=== PATIENT | female | born 1975 | race Caucasian/White ===

== ENCOUNTER 2017-12-29 15:03 | Emergency (ER) | payer OTHER ==
[~2017-12-29] VITALS: Ht 171.4 cm; Wt 65.0 kg
[2017-12-29] MEDS ORDERED: IOHEXOL 350 MG/ML 10 ML VIAL (for RAD DIAG) IVCONTRAST ONE (15:04)
[2017-12-29 15:24] VITALS: BP 184/84; PULSE 68; RESP 18; TEMP 98.1; O2SAT 100
[2017-12-29] MEDS ORDERED: SODIUM CHLOR 0.9% 1000 ML INJ 1,000 ML IV ONE (16:04)
--- NOTE | 2017-12-29 16:09 | PD ---
HPI Chief Complaint: Headache Time Seen by Provider: 15:56 Travel History International Travel<30 days: No Contact w/Intl Traveler<30days: No Traveled to known affect area: No History of Present Illness HPI This is a 42-year-old female with no significant past medical history presents for evaluation of cephalgia. Symptoms started at 8:30 AM this morning when she was doing push-ups. Initially she reports that the pain was severe, frontal occipital headache which was sharp. Throughout the day the headache is gradually lessened in intensity and is currently a 5 out of 10 pain. She denies any stiff neck, nausea or vomiting, visual changes, photophobia, phonophobia, chest pain, shortness of breath, cough or congestion. She does not get frequent headaches. She has no other complaints at this time. PFSH Past Medical History ?: Not Social History Alcohol Use: Yes Tobacco Use: No Allergies-Medications (Allergen,Severity, Reaction): Coded Allergies: aspirin (Verified Allergy, Unknown, 12/29/17) azithromycin (Verified Allergy, Unknown, 12/29/17) cefaclor (Verified Allergy, Unknown, 12/29/17) ibuprofen (Verified Allergy, Unknown, 12/29/17) Review of Systems Except as stated in HPI: all other systems reviewed are Neg Physical Exam Narrative GENERAL: Well-developed well-nourished female no acute distress SKIN: Warm and dry. HEAD: Atraumatic. Normocephalic. EYES: Pupils equal and round. No scleral icterus. No injection or drainage. ENT: No nasal bleeding or discharge. Mucous membranes pink and moist. NECK: Trachea midline. No JVD. Neck supple full range of motion. No lymphadenopathy. CARDIOVASCULAR: Regular rate and rhythm. No murmur appreciated. RESPIRATORY: No accessory muscle use. Clear to auscultation. Breath sounds equal bilaterally. GASTROINTESTINAL: Abdomen soft, non-tender, nondistended. Hepatic and splenic margins not palpable. MUSCULOSKELETAL: No obvious deformities. Normal gait. NEUROLOGICAL: Awake and alert. No obvious cranial nerve deficits. Motor grossly within normal limits. Normal speech. Data Data Last Documented VS Vital Signs Date Time Temp Pulse Resp B/P (MAP) Pulse Ox O2 Delivery O2 Flow Rate FiO2 12/29/17 17:55 73 18 129/59 (82) 99 Room Air 12/29/17 15:24 98.1 Orders Orders Complete Blood Count With Diff (12/29/17 15:27) Basic Metabolic Panel (Bmp) (12/29/17 15:27) Act Partial Throm Time (Ptt) (12/29/17 15:27) Prothrombin Time / Inr (Pt) (12/29/17 15:27) Ct Brain W/O Iv Contrast(Rout) (12/29/17 ) Ed Urine Pregnancytest Poc (12/29/17 15:27) Cta Neck W Iv Contrast W 3d (12/29/17 ) Cta Brain W Iv Contrast W 3d (12/29/17 ) Acetaminophen (Tylenol) (12/29/17 16:15) Diphenhydramine Inj (Benadryl Inj) (12/29/17 16:15) Metoclopramide Inj (Reglan Inj) (12/29/17 16:15) Sodium Chlor 0.9% 1000 Ml Inj (Ns 1000 M (12/29/17 16:04) Iv Access Insert/Monitor (12/29/17 16:04) Iohexol 350 Inj (Omnipaque 350 Inj) (12/29/17 15:04) Labs Laboratory Tests Test 12/29/17 16:15 White Blood Count 8.6 TH/MM3 Red Blood Count 4.48 MIL/MM3 Hemoglobin 13.9 GM/DL Hematocrit 39.1 % Mean Corpuscular Volume 87.1 FL Mean Corpuscular Hemoglobin 31.1 PG Mean Corpuscular Hemoglobin Concent 35.7 % Red Cell Distribution Width 11.9 % Platelet Count 318 TH/MM3 Mean Platelet Volume 8.5 FL Neutrophils (%) (Auto) 54.3 % Lymphocytes (%) (Auto) 37.0 % Monocytes (%) (Auto) 7.4 % Eosinophils (%) (Auto) 0.8 % Basophils (%) (Auto) 0.5 % Neutrophils # (Auto) 4.6 TH/MM3 Lymphocytes # (Auto) 3.2 TH/MM3 Monocytes # (Auto) 0.6 TH/MM3 Eosinophils # (Auto) 0.1 TH/MM3 Basophils # (Auto) 0.0 TH/MM3 CBC Comment DIFF FINAL Differential Comment Prothrombin Time 10.3 SEC Prothromb Time International Ratio 1.0 RATIO Activated Partial Thromboplast Time 24.1 SEC Blood Urea Nitrogen 14 MG/DL Creatinine 0.92 MG/DL Random Glucose 86 MG/DL Calcium Level 9.8 MG/DL Sodium Level 141 MEQ/L Potassium Level 3.5 MEQ/L Chloride Level 105 MEQ/L Carbon Dioxide Level 25.1 MEQ/L Anion Gap 11 MEQ/L Estimat Glomerular Filtration Rate 67 ML/MIN MDM Medical Decision Making Medical Screen Exam Complete: Yes Emergency Medical Condition: Yes Medical Record Reviewed: Yes Differential Diagnosis Tension headache, subarachnoid hemorrhage, intracranial mass, migraine Narrative Course 42-year-old female presents with a frontal/occipital headache which started this morning at 8 AM when she was doing push-ups. She has no focal neurologic deficits and physical examination is reassuring. Initially the headache was quite severe but is now spontaneously lessened. Given the clinical history, CT the brain as well as CTA of the head and neck of been ordered to rule out aneurysm or subarachnoid hemorrhage. The patient was given IV fluids, Reglan, Benadryl. Lab work has been reviewed and found to be unremarkable. CTA of the brain, neck , as well as CT of the brain have been reviewed and found to be unremarkable, no evidence of subarachnoid hemorrhage or aneurysm. Upon reexamination her headache has improved after administration of Reglan and Benadryl and fluids. Diagnosis Primary Impression: Cephalgia Additional Instructions: Follow-up with primary care physician. Return for any acutely new or worsening symptoms. Med/Other Pt SpecificInfo: No Change to Meds Disposition: 01 DISCHARGE HOME Condition: Stable Kye Ng Dec 29, 2017 16:08
[2017-12-29] MEDS ORDERED: ACETAMINOPHEN 325 MG TAB PO ONE (16:15)
[2017-12-29] MEDS ORDERED: METOCLOPRAMIDE HCL 10 MG/2 ML VIAL IVP ONE (16:15)
[2017-12-29] MEDS ORDERED: diphenhydrAMINE HCL 50 MG/ML VIAL IVP ONE (16:15)
[2017-12-29 16:49] LABS: AUTOMATED NEUTROPHIL # 4.6 TH/MM3 (1.8-7.7); BASOPHIL % 0.5 % (0.0-2.0); EOSINOPHIL # 0.1 TH/MM3 (0-0.4); EOSINOPHIL % 0.8 % (0.0-4.0); HEMATOCRIT 39.1 % (35.0-46.0); HEMOGLOBIN 13.9 GM/DL (11.6-15.3); LYMPHOCYTE # 3.2 TH/MM3 (1.0-4.8); MEAN CELL VOLUME 87.1 FL (80.0-100.0); MEAN CORPUSCULAR HEMOGLOBIN 31.1 PG (27.0-34.0); MEAN CORPUSCULAR HGB CONC 35.7 % (32.0-36.0); MEAN PLATELET VOLUME 8.5 FL (7.0-11.0); MONO % 7.4 % (0.0-8.0); MONOCYTE # 0.6 TH/MM3 (0-0.9); NEUT % 54.3 % (16.0-70.0); PLATELET COUNT 318 TH/MM3 (150-450); RED BLOOD COUNT 4.48 MIL/MM3 (4.00-5.30); RED CELL DISTRIBUTION WIDTH 11.9 % (11.6-17.2); WHITE BLOOD COUNT 8.6 TH/MM3 (4.0-11.0)
[2017-12-29 16:56] VITALS: BP 155/73; PULSE 67; RESP 18; O2SAT 100
[2017-12-29 17:13] LABS: BICARBONATE 25.1 MEQ/L (21.0-32.0); CALCIUM 9.8 MG/DL (8.5-10.1); CREATININE 0.92 MG/DL (0.50-1.00); PROTHROMBIN TIME - PATIENT 10.3 SEC (9.8-11.6)
--- NOTE | 2017-12-29 17:44 | RADRPT ---
EXAM DATE/TIME: 12/29/2017 17:25 [facility] COMPARISON: No previous studies available for comparison. INDICATIONS : Patient complains of headache, evaluate for aneurysm. RADIATION DOSE: 35.04 CTDIvol (mGy) MEDICAL HISTORY : None SURGICAL HISTORY : None. ENCOUNTER: Initial ACUITY: 1 day PAIN SCALE: 5/10 LOCATION: cranial TECHNIQUE: Multiple contiguous axial images were obtained of the head. Using automated exposure control and adj ustment of the mA and/or kV according to patient size, radiation dose was kept as low as reasonably a chievable to obtain optimal diagnostic quality images. DICOM format image data is available electro nically for review and comparison. FINDINGS: CEREBRUM: The ventricles are normal for age. No evidence of midline shift, mass lesion, hemorrhage or acute in farction. No extra-axial fluid collections are seen. POSTERIOR FOSSA: The cerebellum and brainstem are intact. The 4th ventricle is midline. The cerebellopontine angle i s unremarkable. EXTRACRANIAL: The visualized portion of the orbits is intact. SKULL: The calvaria is intact. No evidence of skull fracture. CONCLUSION: Negative noncontrast head CT. Chapo Bustos MD on December 29, 2017 at 17:42 Board Certified Radiologist. This report was verified electronically.
[2017-12-29 17:55] VITALS: BP 129/59; PULSE 73; RESP 18; O2SAT 99
--- NOTE | 2017-12-29 18:18 | RADRPT ---
EXAM DATE/TIME: 12/29/2017 17:27 [facility] COMPARISON: No previous studies available for comparison. INDICATIONS : Patient complains of headache, evaluate for aneurysm. IV CONTRAST: 100 cc Omnipaque 350 (iohexol) IV ; Cumulative dose for multiple exams. RADIATION DOSE: 25.91 CTDIvol (mGy) ; Combined studies MEDICAL HISTORY : None SURGICAL HISTORY : None. ENCOUNTER: Initial ACUITY: 1 day PAIN SCALE: 5/10 LOCATION: cranial Elevated flow velocities and ICA/CCA ratios have been found to correlate with increased degrees of vessel stenosis, calculated as percentage of diameter relative to a normal segment of distal ICA/CCA. TECHNIQUE: Volumetric scanning was performed using a multirow detector CT scanner. The data was post processed with a variety of visualization algorithms including full-volume maximum intensity projection, multip lanar sliding thin-slab reformation, curved-planar reformation, and surface-rendering techniques. Us ing automated exposure control and adjustment of the mA and/or kV according to patient size, radiatio n dose was kept as low as reasonably achievable to obtain optimal diagnostic quality images. DICOM f ormat image data is available electronically for review and comparison. FINDINGS: AORTIC ARCH: There is a three-vessel origin of the great vessels from the aorta. No evidence of ostial narrowing. RIGHT CAROTID: The common carotid artery is intact. The carotid bulb has a normal configuration without ulceration o r narrowing. The internal carotid artery lumen is smooth without stenosis. The external carotid rui ry is intact. LEFT CAROTID: The common carotid artery is intact. The carotid bulb has a normal configuration without ulceration or narrowing. The internal carotid artery lumen is smooth without stenosis. The external carotid ar hardik is intact. VERTEBRALS: The vertebral arteries have a symmetric diameter. No stenotic lesions are seen. CONCLUSION: Normal examination for a patient of this age. Michael Ku MD on December 29, 2017 at 18:12 Board Certified Radiologist. This report was verified electronically.
--- NOTE | 2017-12-29 18:23 | RADRPT ---
EXAM DATE/TIME: 12/29/2017 17:27 [facility] COMPARISON: No previous studies available for comparison. INDICATIONS : Patient complains of headache, evaluate for aneurysm. IV CONTRAST: 100 cc Omnipaque 350 (iohexol) IV ; Cumulative dose for multiple exams. RADIATION DOSE: 25.91 CTDIvol (mGy) ; Combined studies MEDICAL HISTORY : None SURGICAL HISTORY : None. ENCOUNTER: Initial ACUITY: 1 day PAIN SCALE: 5/10 LOCATION: cranial TECHNIQUE: Volumetric scanning was performed using a multi-row detector CT scanner. The data was post processed with a variety of visualization algorithms including full volume maximum intensity projection, multi -planar sliding thin slab reformation, curved planar reformation, and surface rendering techniques. Using automated exposure control and adjustment of the mA and/or kV according to patient size, radiat ion dose was kept as low as reasonably achievable to obtain optimal diagnostic quality images. DICO M format image data is available electronically for review and comparison. FINDINGS: There is excellent visualization of the major intracranial arteries out to the second-order branch ve ssels. There is no evidence for aneurysm, vessel truncation or stenosis, and no evidence for vascula r malformation. CONCLUSION: Normal examination for a patient of this age. Michael Ku MD on December 29, 2017 at 18:18 Board Certified Radiologist. This report was verified electronically.
--- NOTE | 2017-12-29 18:46 | PD ---
Data Data Last Documented VS Vital Signs Date Time Temp Pulse Resp B/P (MAP) Pulse Ox O2 Delivery O2 Flow Rate FiO2 12/29/17 17:55 73 18 129/59 (82) 99 Room Air 12/29/17 15:24 98.1 Orders Orders Complete Blood Count With Diff (12/29/17 15:27) Basic Metabolic Panel (Bmp) (12/29/17 15:27) Act Partial Throm Time (Ptt) (12/29/17 15:27) Prothrombin Time / Inr (Pt) (12/29/17 15:27) Ct Brain W/O Iv Contrast(Rout) (12/29/17 ) Ed Urine Pregnancytest Poc (12/29/17 15:27) Cta Neck W Iv Contrast W 3d (12/29/17 ) Cta Brain W Iv Contrast W 3d (12/29/17 ) Acetaminophen (Tylenol) (12/29/17 16:15) Diphenhydramine Inj (Benadryl Inj) (12/29/17 16:15) Metoclopramide Inj (Reglan Inj) (12/29/17 16:15) Sodium Chlor 0.9% 1000 Ml Inj (Ns 1000 M (12/29/17 16:04) Iv Access Insert/Monitor (12/29/17 16:04) Iohexol 350 Inj (Omnipaque 350 Inj) (12/29/17 15:04) Ed Discharge Order (12/29/17 18:42) Labs Laboratory Tests Test 12/29/17 16:15 White Blood Count 8.6 TH/MM3 Red Blood Count 4.48 MIL/MM3 Hemoglobin 13.9 GM/DL Hematocrit 39.1 % Mean Corpuscular Volume 87.1 FL Mean Corpuscular Hemoglobin 31.1 PG Mean Corpuscular Hemoglobin Concent 35.7 % Red Cell Distribution Width 11.9 % Platelet Count 318 TH/MM3 Mean Platelet Volume 8.5 FL Neutrophils (%) (Auto) 54.3 % Lymphocytes (%) (Auto) 37.0 % Monocytes (%) (Auto) 7.4 % Eosinophils (%) (Auto) 0.8 % Basophils (%) (Auto) 0.5 % Neutrophils # (Auto) 4.6 TH/MM3 Lymphocytes # (Auto) 3.2 TH/MM3 Monocytes # (Auto) 0.6 TH/MM3 Eosinophils # (Auto) 0.1 TH/MM3 Basophils # (Auto) 0.0 TH/MM3 CBC Comment DIFF FINAL Differential Comment Prothrombin Time 10.3 SEC Prothromb Time International Ratio 1.0 RATIO Activated Partial Thromboplast Time 24.1 SEC Blood Urea Nitrogen 14 MG/DL Creatinine 0.92 MG/DL Random Glucose 86 MG/DL Calcium Level 9.8 MG/DL Sodium Level 141 MEQ/L Potassium Level 3.5 MEQ/L Chloride Level 105 MEQ/L Carbon Dioxide Level 25.1 MEQ/L Anion Gap 11 MEQ/L Estimat Glomerular Filtration Rate 67 ML/MIN MDM Supervised Visit with JESSIE: Yes Narrative Course I discussed this patient in detail with SITA Fishman. I personally evaluated the patient. We had a lengthy discussion. We discussed the entirety of her workup. She had negative brain CT and negative CTA of head and neck. Vital signs and lab studies and neurologic exam all normal She did have an exertional headache this morning but it is basically resolved at this point. I do not feel lumbar puncture would be helpful at this point, and I think it would be more likely to cause her adverse side effects then be helpful. All her questions were answered. I offered her medication but she says Tylenol will do. Recommend she follow-up with primary care and return if she worsens Diagnosis Primary Impression: Cephalgia Qualified Codes: G44.84 - Primary exertional headache Additional Instruction: Follow-up with primary care physician. Return for any acutely new or worsening symptoms. Med/Other Pt SpecificInfo: Other Disposition: 01 DISCHARGE HOME Condition: Stable Dirk David MD Dec 29, 2017 18:46
== END 2017-12-29 19:20 | disposition home or self-care (01) ==
LOC: NEPC 15:03
DX: G44.84 Primary exertional headache (principal); Y93.B2 Activity, push-ups, pull-ups, sit-ups; Z88.6 Allergy status to analgesic agent
CPT/HCPCS: 70450; 70496; 70498; 80048; 84703; 85025; 85610; 85730; 96374; 96375; 99284; J1200; J2765; J7030; Q9967